=== PATIENT | female | born 1935 | race Caucasian/White ===

== ENCOUNTER 2019-01-02 08:45 | Observation (INO) | payer MEDICARE ==
[~2019-01-02] VITALS: Ht 162.6 cm; Wt 65.6 kg
--- NOTE | 2019-01-02 09:09 | NUR ---
"I COULDN'T GET MY BP DOWN". DOES (not) TAKE BP MEDS. BP NOTED TO BE 187/113 W/ HR 79. THIS AM BP WAS 186/101 W/ HR 68. MILD [place] AND FEELING TIRED. No hx of htn, does have hx of afib (On Eliquis) appears well, rates mclaughlin at 7/10, no vision abnormalities Placed on monitoring tech Provided with estimated poc
--- NOTE | 2019-01-02 09:17 | NUR ---
EKG obtained In room b/p of 92/44, hr of 65 to Radiology at 921a
[2019-01-02] MEDS ORDERED: SODIUM CHLORIDE FLUSH 10ML SYR IVF ONE (09:30)
[2019-01-02] MEDS ORDERED: TRAV5DRO EACHEYE (09:33)
[2019-01-02] MEDS ORDERED: LANS15TA6 PO (09:33)
[2019-01-02] MEDS ORDERED: CALC-126 PO (09:33)
[2019-01-02] MEDS ORDERED: FOLI1TAB5 PO (09:33)
[2019-01-02] MEDS ORDERED: APIX5TAB PO (09:33)
[2019-01-02] MEDS ORDERED: B12/1TAB PO (09:33)
[2019-01-02] MEDS ORDERED: DORZ10DR7 EACHEYE (09:33)
--- NOTE | 2019-01-02 09:52 | NUR ---
labs obtained at 946, sent at 952
[2019-01-02 10:08] LABS: BASOPHILS # (AUTO) 0.05 x10^3/uL (0-0.1); BASOPHILS % (AUTO) 1 % (0-1); EOSINOPHILS # (AUTO) 0.07 x10^3/uL (0-0.4); EOSINOPHILS % (AUTO) 1 % (1-7); LYMPHOCYTES # (AUTO) 1.16 x10^3/uL (1-3.4); LYMPHOCYTES % (AUTO) 20 % (22-44); MD NO; MEAN CORPUSCULAR HEMOGLOBIN 30.7 pg (27.0-34.8); MEAN CORPUSCULAR HGB CONC 33.4 g/dL (32.4-35.8); MEAN CORPUSCULAR VOLUME 92.1 fL (80-100); MEAN PLATELET VOLUME 8.8 fL (7.4-10.4); MONOCYTES # (AUTO) 0.41 x10^3/uL (0.2-0.8); MONOCYTES % (AUTO) 7 % (2-9); NEUTROPHILS % (AUTO) 71 % (42-75); PLATELET COUNT 265 x10^3/uL (130-400); RED BLOOD COUNT 4.58 x10^6/uL (3.82-5.3); RED CELL DISTRIBUTION WIDTH 13.4 % (9.6-15.2)
[2019-01-02 10:11] LABS: INTERNATIONAL NORMALIZED RATIO 1.08 (0.93-1.1); PROTHROMBIN TIME 11.3 Seconds (9.6-11.5)
[2019-01-02 10:14] LABS: ALANINE AMINOTRANSFERASE 21 U/L (12-78); ALBUMIN 3.9 g/dL (3.4-5.0); ANION GAP 7 mmol/L (5-15); CALCIUM 8.8 mg/dL (8.5-10.1); CHLORIDE 100 mmol/L (98-107); CREATININE 0.69 mg/dL (0.55-1.02)
--- NOTE | 2019-01-02 10:15 | NUR ---
Comparing monitor (90/44) nibp to patient's home blood pressure as well as exam- life insurance underwriter verified with manual blood pressure cuff as well as seperate blood pressure machine. Manual blood pressure to left arm 90/50-right arm 95/56. With seperate automatic blood pressure machine left are 144/79, right arm 177/110. Patient also now reporting complete resolution of symptoms (no borrero of fatigue at this time). Provider to bedside for repeat exam
[2019-01-02 10:16] LABS: ALKALINE PHOSPHATASE 62 U/L (45-117); BILIRUBIN,TOTAL 0.9 mg/dL (0.2-1.0); TOTAL PROTEIN 6.7 g/dL (6.4-8.2)
--- NOTE | 2019-01-02 10:45 | NUR ---
MEDICATED PER EMAR CURRENT 57 165/39
--- NOTE | 2019-01-02 11:27 | NUR ---
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
[2019-01-02 11:35] LABS: TROPONIN I < 0.015 ng/mL (0.000-0.045)
[2019-01-02 12:07] VITALS: BP 148/82
[2019-01-02 13:45] VITALS: BP 154/78
[2019-01-02] MEDS ORDERED: ACETAMINOPHEN 325 MG TABLET PO PRN (15:00)
[2019-01-02] MEDS ORDERED: hydrALAzine 20 MG/ML, 1ML IVPush PRN (15:00)
[2019-01-02] MEDS ORDERED: ONDANSETRON 2MG/ML, 2ML IVPush PRN (15:00)
[2019-01-02 18:32] VITALS: BP 109/69
[2019-01-02] MEDS: APIXABAN 5 MG TABLET PO SCH (19:59)
[2019-01-02] MEDS ORDERED: TRAVOPROST OPHTH 0.004%, 2.5ML EACHEYE SCH (21:00)
[2019-01-03] VITALS (8 sets, daily range): BP systolic 104–170; BP diastolic 74–92
[2019-01-03] MEDS: APIXABAN 5 MG TABLET PO SCH (07:53)
[2019-01-03] MEDS ORDERED: TEMPLATE NON-FORMULARY MED. (Dorzolamide Hcl/Timolol Maleat (Dorzolamide-Timolol Eye Drops EACHEYE SCH (09:00)
[2019-01-03] MEDS ORDERED: CALCIUM/VITAMIN D3 250-125 TABLET PO SCH (09:00)
[2019-01-03] MEDS ORDERED: B12 PO SCH (09:00)
[2019-01-03] MEDS ORDERED: LISINOPRIL 5 MG TABLET PO SCH (09:00)
[2019-01-03] MEDS ORDERED: LEVOMEFOLATE CALCIUM PO SCH (09:00)
[2019-01-03] MEDS ORDERED: PANTOPROZOLE 40MG TABLET PO SCH (09:00)
[2019-01-03] MEDS ORDERED: B6 PO SCH (09:00)
[2019-01-03] MEDS ORDERED: MULTIVITAMIN 1 TABLET PO SCH (09:00)
[2019-01-03] MEDS ORDERED: LISI5TAB7 PO (14:29)
[2019-01-03] MEDS ORDERED: ALPR0.25 PO (14:29)
== END 2019-01-03 15:45 | disposition home or self-care (01) ==
LOC: ED 10:42 → UNDOADMOB 11:10 → INTOOBSV 11:10 → EDIP 11:10 → 4EST 11:56 → EDIP 15:07 → DCLOUNGE 01-03 15:19 → 4EST 01-03 15:19 → DCLOUNGE 01-03 15:19 → UNDODISOB 01-03 15:45
PROVIDERS: ADMIT Internal Medicine; ATTEND Internal Medicine
DX: I10 Essential (primary) hypertension (principal); R51 Headache; R53.83 Other fatigue; I16.0 Hypertensive urgency; I48.0 Paroxysmal atrial fibrillation; K21.9 Gastro-esophageal reflux disease without esophagitis; H40.9 Unspecified glaucoma; R00.1 Bradycardia, unspecified; D68.69 Other thrombophilia; Z79.01 Long term (current) use of anticoagulants; Z87.891 Personal history of nicotine dependence; Z90.710 Acquired absence of both cervix and uterus; Z79.899 Other long term (current) drug therapy
CPT/HCPCS: 36415; 70450; 80053; 84484; 85025; 85610; 93005; 99284; G0378; 99285

== ENCOUNTER 2019-08-04 12:57 | Emergency (ER) | payer MEDICARE ==
[~2019-08-04] VITALS: Ht 160 cm; Wt 66.2 kg
[~2019-08-04 12:57] MED LIST: ALPR0.25 PO; APIX5TAB PO; B12/1TAB PO; CALC-126 PO; DORZ10DR7 EACHEYE; FOLI1TAB5 PO; LANS15TA6 PO; LISI5TAB7 PO; TRAV5DRO EACHEYE
[2019-08-04 14:32] LABS: BASOPHILS # (AUTO) 0.06 x10^3/uL (0-0.1); BASOPHILS % (AUTO) 1 % (0-1); EOSINOPHILS # (AUTO) 0.15 x10^3/uL (0-0.4); EOSINOPHILS % (AUTO) 1 % (1-7); LYMPHOCYTES # (AUTO) 1.96 x10^3/uL (1-3.4); LYMPHOCYTES % (AUTO) 19 % (22-44); MD NO; MEAN CORPUSCULAR HEMOGLOBIN 29.9 pg (27.0-34.8); MEAN CORPUSCULAR HGB CONC 33.3 g/dL (32.4-35.8); MEAN CORPUSCULAR VOLUME 89.9 fL (80-100); MONOCYTES # (AUTO) 0.53 x10^3/uL (0.2-0.8); MONOCYTES % (AUTO) 5 % (2-9); NEUTROPHILS # (AUTO) 7.79 x10^3/uL (1.8-6.8); NEUTROPHILS % (AUTO) 74 % (42-75); PLATELET COUNT 309 x10^3/uL (130-400); RED BLOOD COUNT 4.69 x10^6/uL (3.82-5.3); RED CELL DISTRIBUTION WIDTH 13.1 % (9.6-15.2)
[2019-08-04 14:36] LABS: ALBUMIN 3.8 g/dL (3.4-5.0); ANION GAP 8 mmol/L (5-15); CALCIUM 9.1 mg/dL (8.5-10.1); CHLORIDE 94 mmol/L (98-107)
[2019-08-04 14:40] LABS: ALANINE AMINOTRANSFERASE 24 U/L (12-78); ALKALINE PHOSPHATASE 72 U/L (45-117); CREATININE 0.71 mg/dL (0.55-1.02); TOTAL PROTEIN 7.4 g/dL (6.4-8.2)
--- NOTE | 2019-08-04 14:43 | NUR ---
ASSISTANT PROFESSOR OF HISTORY: PT TO ROOM FROM YAIM[facility] ABURTO
--- NOTE | 2019-08-04 15:02 | NUR ---
PT UPRIGHT ON GURNEY AWAKE & COMFORTABLE, RESPONDS APPROP TO STAFF, NAD, COMFORT MEASURES PROVIDED, FAMILY AT BS, CALL LIGHT WITHIN REACH, ERP UPDATING PT ON POC.
[2019-08-04] MEDS ORDERED: SODIUM CHLORIDE 0.9% 1,000 ML IV ONE (15:06)
[2019-08-04] MEDS ORDERED: SODIUM CHLORIDE 0.9% 1,000ML IVBOLUS ONE (15:30)
[2019-08-04] MEDS ORDERED: SODIUM CHLORIDE FLUSH 10ML SYR IVF ONE (15:30)
--- NOTE | 2019-08-04 16:00 | NUR ---
PT REMAINS UPRIGHT ON GURNEY AWAKE & COMFORTABLE, RESPONDS APPROP TO STAFF, NAD, COMFORT MEASURES PROVIDED, DAUGHTER AT BS, CALL LIGHT WITHIN REACH, UNABLE TO PROVIDE STOOL SAMPLE AT THIS TIME.
--- NOTE | 2019-08-04 16:36 | NUR ---
PATIENT REQUESTED RN, FLUIDS FINISHED. PATIENT STATED CONCERNS REGARDING CONTINUED IV PLACEMENT. PATIENT GIVEN VERBAL EDUCATION REGARDING IV NEED, NO EVIDENCE OF LEARNING EXHIBITED. PATIENT DISPLEASED WITH HAVING IV STILL IN PLACE DESPITE FLUIDS BEING FINISHED AT THIS TIME.
[2019-08-04 17:05] VITALS: BP 134/66
--- NOTE | 2019-08-04 17:05 | NUR ---
PT UPRIGHT ON GURNEY AWAKE & COMFORTABLE, RESPONDS APPROP TO STAFF, NAD, COMFORT MEASURES PROVIDED, DAUGHTER AT BS, CALL LIGHT WITHIN REACH, STILL UNABLE TO PROVIDE STOOL SAMPLE AT THIS TIME.
--- NOTE | 2019-08-04 17:53 | NUR ---
Patient given discharge instructions and Rx, they have confirmed that they understand the instructions. Patient ambulatory with steady gait.
== END 2019-08-04 17:54 | disposition home or self-care (01) ==
LOC: ED 15:10
DX: J06.9 Acute upper respiratory infection, unspecified (principal); R19.7 Diarrhea, unspecified; I10 Essential (primary) hypertension
CPT/HCPCS: 36415; 71046; 80053; 85025; 96360; 99284; J7030; 96361

== ENCOUNTER 2020-11-15 22:09 | Emergency (ER) | payer MEDICARE ==
[~2020-11-15] VITALS: Ht 160 cm; Wt 65.1 kg
--- NOTE | 2020-11-15 22:10 | NUR ---
right forefoot (sparing ankle) swelling/bruising x 1 day. no trauma no sob/c/p "I'm anxious thats why my blood pressure is up. I hate the hospital."
[2020-11-15 23:57] VITALS: BP 156/83
== END 2020-11-16 01:08 | disposition home or self-care (01) ==
LOC: ED 22:45
DX: S90.31XA Contusion of right foot, initial encounter (principal); I10 Essential (primary) hypertension; X58.XXXA Exposure to other specified factors, initial encounter; Y93.89 Activity, other specified; Y92.89 Other specified places as the place of occurrence of the external cause; Y99.8 Other external cause status
CPT/HCPCS: 99283

== ENCOUNTER → 2020-12-03 | Outpatient (CLI) | payer MEDICARE | END | disposition home or self-care (01) | LOC: CVU 11:49 | PROVIDERS: ATTEND Internal Medicine Cardiovascular Disease | DX: I34.0 Nonrheumatic mitral (valve) insufficiency (principal); I48.0 Paroxysmal atrial fibrillation; I10 Essential (primary) hypertension | CPT/HCPCS: 93306; 93356 ==